=== PATIENT | female | born 1945 | race Caucasian/White ===

== ENCOUNTER → 2016-05-19 | Outpatient (CLI) | payer MEDICARE ==
--- NOTE | 2016-05-20 12:46 | MM ---
Reason for exam: screening (asymptomatic). Last mammogram was performed 1 year and 1 month ago. History: Patient is postmenopausal, has history of high-risk lesion on a previous biopsy at age 66, and had first child at age 34. Family history of breast cancer in 3 paternal aunts and breast cancer in paternal grandmother. High risk left mammotome panel of the left breast, January 23, 2012. Ultrasound-guided cyst aspiration of the left breast, September 14, 1999. 2 cyst aspirations of the left breast. Excisional biopsy of the left breast. Excisional biopsy of the right breast. Took estrogen for 21 years beginning at age 39. Physical Findings: A clinical breast exam by your physician is recommended on an annual basis and results should be correlated with mammographic findings. MG 3D Screening Mammo W/Cad Bilateral CC and MLO view(s) were taken. Prior study comparison: April 16, 2015, bilateral MG 3d diag mammo w/cad D[facility]EL[facility]O. February 03, 2014, bilateral MG diagnostic mammo w CAD DANIELITO. The breast tissue is heterogeneously dense. This may lower the sensitivity of mammography. No significant changes when compared with prior studies. ASSESSMENT: Negative, BI-RAD 1 RECOMMENDATION: Routine screening mammogram of both breasts in 1 year.
== END | disposition home or self-care (01) ==
LOC: RADMAMWWP 10:47
PROVIDERS: ATTEND Obstetrics & Gynecology
DX: Z12.31 Encounter for screening mammogram for malignant neoplasm of breast (principal)
CPT/HCPCS: 77063; G0202

== ENCOUNTER → 2017-07-18 | Outpatient (CLI) | payer MEDICARE ==
--- NOTE | 2017-07-20 09:24 | MM ---
Reason for exam: screening (asymptomatic). Last mammogram was performed 1 year and 2 months ago. History: Patient is postmenopausal, has history of high-risk lesion on a previous biopsy at age 66, and had first child at age 34. Family history of breast cancer in 3 paternal aunts and breast cancer in paternal grandmother. High risk left mammotome panel of the left breast, January 23, 2012. Ultrasound-guided cyst aspiration of the left breast, September 14, 1999. 2 cyst aspirations of the left breast. Excisional biopsy of the left breast. Excisional biopsy of the right breast. Took estrogen for 21 years beginning at age 39. Physical Findings: A clinical breast exam by your physician is recommended on an annual basis and results should be correlated with mammographic findings. MG 3D Screening Mammo W/Cad Bilateral CC and MLO view(s) were taken. Prior study comparison: May 19, 2016, bilateral MG 3d screening mammo w/cad. April 16, 2015, bilateral MG 3d diag mammo w/cad D[facility]ELITO. The breast tissue is heterogeneously dense. This may lower the sensitivity of mammography. Previous mammotome biopsy in the left breast. No significant changes when compared with prior studies. ASSESSMENT: Benign, BI-RAD 2 RECOMMENDATION: Routine screening mammogram of both breasts in 1 year.
== END | disposition home or self-care (01) ==
LOC: RADMAMWWP 14:19
PROVIDERS: ATTEND Internal Medicine Critical Care Medicine
DX: Z12.31 Encounter for screening mammogram for malignant neoplasm of breast (principal); Z80.3 Family history of malignant neoplasm of breast
CPT/HCPCS: 77063; 77067

== ENCOUNTER → 2020-02-19 | Outpatient (CLI) | payer MEDICARE ==
--- NOTE | 2020-02-20 10:39 | MM ---
Reason for exam: screening (asymptomatic). Last mammogram was performed 2 years and 7 months ago. History: Patient is postmenopausal, has history of high-risk lesion on a previous biopsy at age 66, and had first child at age 34. Family history of breast cancer in 3 paternal aunts and breast cancer in paternal grandmother. High risk left mammotome panel of the left breast, January 23, 2012. Ultrasound-guided cyst aspiration of the left breast, September 14, 1999. 2 cyst aspirations of the left breast. Excisional biopsy of the left breast. Excisional biopsy of the right breast. Took estrogen for 21 years beginning at age 39. Physical Findings: A clinical breast exam by your physician is recommended on an annual basis and results should be correlated with mammographic findings. MG 3D Screening Mammo W/Cad Bilateral CC and MLO view(s) were taken. Prior study comparison: July 18, 2017, bilateral MG 3d screening mammo w/cad. May 19, 2016, bilateral MG 3d screening mammo w/cad. The breast tissue is heterogeneously dense. This may lower the sensitivity of mammography. No significant changes when compared with prior studies. ASSESSMENT: Benign, BI-RAD 2 RECOMMENDATION: Routine screening mammogram of both breasts in 1 year.
== END | disposition home or self-care (01) ==
LOC: RADMAMWWP 12:42
PROVIDERS: ATTEND Internal Medicine Critical Care Medicine
DX: Z12.31 Encounter for screening mammogram for malignant neoplasm of breast (principal)
CPT/HCPCS: 77063; 77067

== ENCOUNTER → 2022-08-31 | Outpatient (CLI) | payer MEDICARE ==
--- NOTE | 2022-08-31 18:58 | BD ---
EXAMINATION TYPE: Axial Bone Density DATE OF EXAM: 08/31/2022 CLINICAL HISTORY: 77 years old Female. ICD-10 CODE: M85.88 OTH DISRD OF BONE DENSITY AND STRUCTURE, OTHER SITE Height: 4 ft 7 in Weight: 132 FRAX RISK QUESTIONS: Alcohol (3 or more units per day): no Family History (Parent hip fracture): no Glucocorticoids (More than 3mos): no (Ex: prednisone, prednisolone, methylprednisolone, dexamethasone, and hydrocortisone). History of Fracture in Adulthood: yes Secondary Osteoporosis: 1. Type 1 Diabetes: no 2. Hyperthyroidism: removed/radiation 3. Menopause before 45: around 45 4. Malnutrition: no 5. Chronic liver disease: no Rheumatoid Arthritis: no Current Tobacco Use: no RISK FACTORS HISTORY OF: Surgery to Spine/Hip(right/left)/Wrist (right/left): no Family History of Osteoporosis: no Active: yes Diet low in dairy products/other sources of calcium: no Postmenopausal woman: yes Take estrogen and/or progesterone medications: no Lost more than 2 inches in height since high school: no Frequent falls: no Poor Health: good Hyperparathyroidism: no Adrenal Insufficiency: no MEDICATIONS: Thyroid Medications: yes Which medication: synthroid How Lon-8 years Additional Medications: synthroid, dristol Additional History: EXAM MEASUREMENTS: Bone mineral densitometry was performed using the [employer] [facility]. Bone mineral density as measured about the Lumbar spine is: ----- L1-L4(G/cm2): 0.912 T Score Values are as follows: ----- L1: -2.9 ----- L2: -2.7 ----- L3: -2.4 ----- L4: -1.2 ----- L1-L4: -2.2 Z Score Values are as follows: ----- L1: -1.0 ----- L2: -0.8 ----- L3: -0.5 ----- L4: 0.8 ----- L1-L4: -0.3 Bone mineral density has: increased 2.4 % since study of: 2016 Bone mineral density about the R hip (g/cm2): 0.772 Bone mineral density about the L hip (g/cm2): 0.814 T Score values are as follows: -----R Neck: -1.9 -----L Neck: -1.6 -----R Total: 1.9 -----L Total: -1.3 Z Score values are as follows: -----R Neck: 0.2 -----L Neck: 0.5 -----R Total: 0.1 -----L Total: 0.7 Bone mineral density has: decreased -10.2 % since study of: 2016 FRAX%s: The graph provided illustrates a 20.0 % chance for a major osteoporotic fx and a 4.8 % chance for the hips probability for fx in 10 years time. IMPRESSION: Osteopenia (T Score between -2.5 and -1). There is slightly increased risk of fracture and the patient may be considered for treatment. Re-Screen 2-5 years. NOTE: T-SCORE=SD OF THE YOUNG ADULT MEAN.
--- NOTE | 2022-09-01 07:21 | MM ---
Reason for Exam: Screening (asymptomatic). Last mammogram was performed 2 year(s) and 6 month(s) ago. Patient History: Menarche at age 17. First Full-Term at age 34. Late child-bearing (after 30). Postmenopausal. Estrogen for 21 years from age 39 until age 60. Cyst Aspiration on the Left side. Cyst Aspiration on the Left side. Excisional Biopsy on the Right side. Excisional Biopsy on the Left side. 01/23/2012, High risk Core Biopsy on the left side. 09/14/1999, Ultrasound-Guided Cyst Aspiration on the Left side. Paternal grandmother had breast cancer. Paternal aunt had breast cancer. Paternal aunt had breast cancer. Paternal aunt had breast cancer. Risk Values: Aimee 5 year model risk: 3.3%. NCI Lifetime model risk: 6.2%. Prior Study Comparison: 05/19/2016 Bilateral Screening Mammogram, [facility]. 07/18/2017 Bilateral Screening Mammogram, [facility]. 02/19/2020 Bilateral Screening Mammogram, [facility]. Tissue Density: The breast tissue is heterogeneously dense. This may lower the sensitivity of mammography. Findings: Analyzed By CAD. There is no suspicious group of microcalcifications or new suspicious mass in either breast. Overall Assessment: Negative, BI-RAD 1 Management: Screening Mammogram of both breasts in [address] [facility] will attempt to contact patient to return for supplemental views and ultrasound if indicated. Patient should continue monthly self-breast exams. A clinical breast exam by your physician is recommended on an annual basis. This exam should not preclude additional follow-up of suspicious palpable abnormalities. Note on Aimee scores and lifetime risk: 1. A Aimee score greater than 3% is considered moderate risk. If this is the case, consider specialist referral to assess eligibility for a risk reducing agent. 2. If overall lifetime risk for the development of breast cancer is 20% or higher, the patient may qualify for future screening with alternating mammogram and breast MRI. Electronically signed and approved by: Earl Armendariz DO
== END | disposition home or self-care (01) ==
LOC: RADBDWWP 09:05
PROVIDERS: ATTEND Obstetrics & Gynecology
DX: Z12.31 Encounter for screening mammogram for malignant neoplasm of breast (principal); M81.0 Age-related osteoporosis without current pathological fracture; M85.89 Other specified disorders of bone density and structure, multiple sites; Z80.3 Family history of malignant neoplasm of breast; Z78.0 Asymptomatic menopausal state
CPT/HCPCS: 77063; 77067; 77080